=== PATIENT | male | born 1955 | race Caucasian/White ===

== ENCOUNTER 2018-05-12 20:35 | Emergency (ER) | payer OTHER ==
--- NOTE | 2018-05-12 21:12 | EDPHY ---
H & P Stated Complaint: Left Elbow Swelling Time Seen by Provider: 05/12/18 21:02 HPI/ROS: CHIEF COMPLAINT: Atraumatic left elbow swelling HISTORY OF PRESENT ILLNESS: The patient presents to the ED with mild swelling erythema of his left olecranon bursa. The patient may have been putting more pressure on the elbow joint while sitting at a desk. The patient does have a history of diabetes. He denies any history of fever. He denies any acute numbness or weakness. He denies additional acute complaints. REVIEW OF SYSTEMS: A comprehensive 10 point review of systems is otherwise negative aside from elements mentioned in the history of present illness. Source: Patient Exam Limitations: No limitations - Personal History Current Tetanus Diphtheria and Acellular Pertussis (TDAP): No - Medical/Surgical History Hx Asthma: No Hx Chronic Respiratory Disease: No Hx Diabetes: Yes Hx Cardiac Disease: No Hx Renal Disease: No Hx Cirrhosis: No Hx Alcoholism: No Hx HIV/AIDS: No Hx Splenectomy or Spleen Trauma: No Other PMH: HTN, High Cholesterol, DM - Social History Smoking Status: Former smoker - Physical Exam Exam: General Appearance: Alert, no distress Eyes: Pupils equal and round no pallor or injection ENT, Mouth: Mucous membranes moist Respiratory: There are no retractions, lungs are clear to auscultation Cardiovascular: Regular rate and rhythm Gastrointestinal: Abdomen is soft and nontender, no masses, bowel sounds normal Neurological: 5/5 strength all 4 extremities Skin: Minimal erythema over left olecranon bursa Musculoskeletal: Mild left olecranon bursitis Extremities: symmetrical, full range of motion, no clinical evidence of septic arthritis Constitutional: Initial Vital Signs Temperature (C) 36.9 C 05/12/18 20:44 Heart Rate 94 05/12/18 20:44 Respiratory Rate 18 05/12/18 20:44 Blood Pressure 158/88 H 05/12/18 20:44 O2 Sat (%) 96 05/12/18 20:44 O2 Delivery Mode Room Air Allergies/Adverse Reactions: Penicillins Allergy (Verified 05/12/18 20:42) Home Medications: Medication Instructions Recorded Cephalexin [Keflex] 500 mg PO QID #28 cap 05/12/18 Farxiga 05/12/18 Lisinopril 05/12/18 Metformin HCl 05/12/18 Norvasc 10 mg (*) 05/12/18 Medical Decision Making ED Course/Re-evaluation: The patient presents the ED with a very mild left olecranon bursitis. There is very minimal erythema. Given his diabetic status he will be started on Keflex. The patient will be discharged home with instructions to return to the ED for markedly worsening symptoms or other concerns. The patient will follow up with Orthopedic surgery in his home town for any ongoing symptoms. Differential Diagnosis: Differential diagnosis considered includes olecranon bursitis, septic arthritis , cellulitis, abscess Departure - Departure Disposition: Home, Routine, Self-Care Clinical Impression: Olecranon bursitis Qualifiers: Laterality: left Qualified Code(s): M70.22 - Olecranon bursitis, left elbow Condition: Good Instructions: Elbow Bursitis (ED) Additional Instructions: 1. Please follow up with your regular physician for any unimproved symptoms. 2. Take antibiotics as directed for next week. 3. Return to the ED for markedly worsening pain, swelling or redness as this may be the sign of a worsening infection requiring drainage.
[2018-05-12] MEDS ORDERED: CEPHALEXIN 500 MG CAP PO ONE (21:16)
[2018-05-12 21:26] VITALS: BP 144/80
== END 2018-05-12 21:26 | disposition home or self-care (01) ==
DX: M70.22 Olecranon bursitis, left elbow (principal); I10 Essential (primary) hypertension; E11.9 Type 2 diabetes mellitus without complications; Z79.84 Long term (current) use of oral hypoglycemic drugs; Z87.891 Personal history of nicotine dependence; Y93.89 Activity, other specified